=== PATIENT | female | born 1970 | race Caucasian/White ===

== ENCOUNTER → 2023-11-08 16:30 | Outpatient (REF) | payer BC, SELFPAY | LOC: WDC 16:30 | PROVIDERS: ATTENDING PHYSICIAN Nurse Practitioner Adult Health; FAMILY PHYSICIAN Internal Medicine | DX: Z12.31 Encounter for screening mammogram for malignant neoplasm of breast (principal) | CPT/HCPCS: 77063; 77067 ==

== ENCOUNTER → 2024-12-16 18:28 | Outpatient (REF) | payer BC, SELFPAY | LOC: WDC 18:28 | PROVIDERS: ATTENDING PHYSICIAN Nurse Practitioner Adult Health; FAMILY PHYSICIAN Internal Medicine | DX: Z12.31 Encounter for screening mammogram for malignant neoplasm of breast (principal) | CPT/HCPCS: 77063; 77067 ==